=== PATIENT | female | born 1985 | race Caucasian/White ===

== ENCOUNTER 2022-05-19 09:44 | Inpatient (IN) | payer OTHER ==
[~2022-05-19 09:44] MED LIST: Bupivacaine 0.25% HCL 30 ML VIAL ONE
[2022-05-19] MEDS ORDERED: Penicillin G Potassium 5 MILL.UNITS VIAL ONE (10:29)
[2022-05-19] MEDS ORDERED: Ondansetron PF 4 MG/2 ML Vial IVP PRN ×3 (11:09→22:31)
[2022-05-19] MEDS ORDERED: hydrALAZINE 20 MG/ML VIAL SLOW IVP PRN ×2 (11:09→22:31)
[2022-05-19] MEDS ORDERED: HYDROcodone/Acetaminophen 5/325 mg Tablet PO PRN ×4 (11:09→22:31)
[2022-05-19] MEDS ORDERED: Lidocaine 1% (PF) 30 ML VIAL SC PRN (11:09)
[2022-05-19] MEDS ORDERED: Butorphanol Tartrate 1 MG/ML VIAL SLOW IVP PRN (11:09)
[2022-05-19] MEDS ORDERED: Promethazine HCl 25 MG/ML VIAL IM PRN ×2 (11:09→15:22)
[2022-05-19] MEDS ORDERED: Ibuprofen 800 MG TAB PO PRN (11:09)
[2022-05-19] MEDS ORDERED: NS w/ Oxytocin 30 units 500 ML IV SCH (11:15)
[2022-05-19] MEDS ORDERED: Lactated Ringer's 1,000 ML IV SCH (11:15)
[2022-05-19] MEDS ORDERED: Penicillin G Potassium 5 MILL.UNITS in Sodium Chloride 0.9% 100 ML IVPB SCH (11:15)
[2022-05-19 12:00] LABS: Hemoglobin 13.5 g/dL (12.0-15.5); Mean Corpuscular HGB CONC 34.1 g/dL (32.0-36.0); Mean Corpuscular Hemoglobin 32.3 pg (27.0-33.0); Mean Corpuscular Volume 94.7 fl (81.6-98.3); Mean Platelet Volume 11.7 fl (7.4-10.4); Platelet Count 218 10x3/uL (150-450); RBC Distribution Width 13.3 % (11.5-14.5); Red Blood Cell (RBC) Count 4.18 10x6/uL (3.90-5.03); White Blood Cell (WBC) Count 7.6 10x3/uL (3.5-10.5)
[2022-05-19 12:35] LABS: HBSAg Index 0.17 S/CO (0-0.99); Hep B Surf Ag Non-Reactive S/CO (NonReactive)
[2022-05-19 12:36] LABS: Syphilis Antibody Nonreactive (Nonreactive); Syphilis Antibody Index 0.04 S/CO (<1.00 Non-Reactive)
[2022-05-19 14:04] VITALS: BMI 23.5
[2022-05-19] MEDS ORDERED: Fentanyl 2 mcg/Bup 0.1% Cadd 100 ML ONE (14:41)
[2022-05-19] MEDS ORDERED: Penicillin G 2.5 MILL.units 2.5 MILL.UNITS in Premix Bag 1 BAG IVPB SCH (15:00)
[2022-05-19] MEDS ORDERED: Lactated Ringer's 500 ML IV PRN (15:22)
[2022-05-19] MEDS ORDERED: ePHEDrine Sulfate 50 MG/10 ML VIAL SLOW IVP PRN (15:22)
[2022-05-19] MEDS ORDERED: Moisturizing Cream (Eucerin) 113 GM JAR TOP PRN (15:22)
[2022-05-19] MEDS ORDERED: Acetaminophen 325 MG TAB PO PRN (15:22)
[2022-05-19] MEDS ORDERED: Naloxone HCl 0.4 mg/ml Vial IVP PRN ×2 (15:22)
[2022-05-19] MEDS ORDERED: diphenhydrAMINE 50 MG/ML VIAL IVP PRN (15:22)
[2022-05-19] MEDS ORDERED: Communication Order-Pharmacy FS SCH (15:30)
[2022-05-19] MEDS ORDERED: Fentanyl 2 mcg/Bupivacaine 0.1% Cassette 100 ML EPIDURAL SCH (15:30)
[2022-05-19] MEDS ORDERED: Milk Of Magnesia 30 ML UDCUP PO PRN (22:31)
[2022-05-19] MEDS ORDERED: Boostrix 0.5 ML (Tdap) VIAL (>/=7 yrs of age) IM ONE (22:31)
[2022-05-19] MEDS ORDERED: Preparation H Ointment 28 GM TUBE PR PRN (22:31)
[2022-05-19] MEDS ORDERED: Bisacodyl 10 MG SUPP PR PRN (22:31)
[2022-05-19] MEDS ORDERED: diphenhydrAMINE 25 MG CAP PO PRN (22:31)
[2022-05-19] MEDS ORDERED: Lanolin Ointment 7 GM TUBE TOP PRN (22:31)
[2022-05-19] MEDS ORDERED: Benzocaine-Menthol 82.5 ML CAN TOP PRN (22:31)
[2022-05-19] MEDS ORDERED: Docusate 100 MG CAP PO SCH (22:45)
[2022-05-19] MEDS ORDERED: Ferrous Sulfate 325 MG TAB PO SCH (22:45)
[2022-05-20] MEDS: Ibuprofen 800 MG TAB PO SCH ×2 (05:31→14:25)
[2022-05-20] MEDS: Ferrous Sulfate 325 MG TAB PO SCH ×2 (08:07→18:10)
[2022-05-20] MEDS ORDERED: Docusate 100 MG CAP PO SCH (09:00)
[2022-05-20] MEDS ORDERED: Prenatal Vitamin 1 TAB PO SCH (09:00)
[2022-05-20 11:57] VITALS: TEMP 98.3
[2022-05-20 16:33] VITALS: BP 94/57
== END 2022-05-20 18:20 | disposition home or self-care (01) | DRG 807 ==
LOC: CSHLD/OP 09:44 → CSHLD 09:50 → CSHPED 21:45
PROVIDERS: ADMIT Obstetrics & Gynecology; ATTEND Obstetrics & Gynecology
PROC: 10E0XZZ Delivery of Products of Conception, External Approach (ICD-10-PCS; principal; 2022-05-19)
PROC: 0KQM0ZZ Repair Perineum Muscle, Open Approach (ICD-10-PCS; 2022-05-19)
DX: O70.1 Second degree perineal laceration during delivery (principal); Z37.0 Single live birth; Z3A.39 39 weeks gestation of pregnancy; O99.824 Streptococcus B carrier state complicating childbirth; O34.13 Maternal care for benign tumor of corpus uteri, third trimester; D25.9 Leiomyoma of uterus, unspecified
CPT/HCPCS: 36415; 85027; 86780; 86850; 86900; 86901; 87340; J2540; J7120; S0020